=== PATIENT | male | born 1985 | race Caucasian/White ===

== ENCOUNTER 2019-01-14 08:43 | Emergency (ER) | payer BC ==
[~2019-01-14] VITALS: Ht 180.3 cm; Wt 95.3 kg
[2019-01-14] MEDS ORDERED: POLYMYXIN B/TMP10 ML LT. EYE (09:41)
[2019-01-14] MEDS ORDERED: NORCO 5-325 TA1 EAC1 PO (09:41)
[2019-01-14 09:48] VITALS: BP 124/82
== END 2019-01-14 09:49 | disposition home or self-care (01) ==
LOC: M.ERS 08:43
DX: S05.02XA Injury of conjunctiva and corneal abrasion without foreign body, left eye, initial encounter (principal); X58.XXXA Exposure to other specified factors, initial encounter; Y92.89 Other specified places as the place of occurrence of the external cause; Y93.89 Activity, other specified; Y99.8 Other external cause status